=== PATIENT | female | born 1940 | race Caucasian/White ===

== ENCOUNTER 2020-03-15 11:35 | Outpatient (REF) | payer MEDICARE, SELFPAY | END 2020-03-15 11:36 | disposition home or self-care (01) | LOC: HO.LAB 11:35 | PROVIDERS: PCP Internal Medicine; Visit Provider Internal Medicine | DX: Z20.828 Contact with and (suspected) exposure to other viral communicable diseases (principal) | CPT/HCPCS: 36415; C9803; U0003 ==

== ENCOUNTER 2021-08-03 08:33 | Outpatient (REF) | payer OTHER, MEDICARE, SELFPAY ==
[2021-08-03 09:27] LABS: COVID-19 Test Negative (Negative); IDNOW Serial# 9DB6401D
== END 2021-08-03 08:34 | disposition home or self-care (01) ==
LOC: HO.LAB 08:33
PROVIDERS: Visit Provider Internal Medicine
DX: Z20.822 Contact with and (suspected) exposure to COVID-19 (principal)
CPT/HCPCS: 87635; C9803

== ENCOUNTER 2023-04-19 12:03 | Inpatient (IN) | payer OTHER, SELFPAY ==
--- NOTE | ~2023-04-19 | XR_ITS ---
EXAMINATION: XR CHEST CLINICAL INFORMATION: Shortness of breath. COMPARISON: None available. TECHNIQUE: 2 views of the chest were obtained. FINDINGS: The lungs are expanded with moderate bilateral basilar pleural effusion with underlying atelectasis. Heart size is enlarged. The pulmonary vascularity is normal. No gross bony abnormality seen. XR/XR chest 2V IMPRESSION: Moderate bilateral basilar pleural effusion with underlying atelectasis
--- NOTE | 2023-04-19 12:09 | ED_ITS ---
HPI - General Adult General Chief complaint: Arrhythmia/Palpitations Stated complaint: a fib, swollen ankles, not sleeping Time Seen by Provider: 04/19/23 13:00 Source: patient and family Mode of arrival: ambulatory Limitations: no limitations History of Present Illness HPI narrative: 83 yo female with HPL, HTN just dx by PCP with afib 1.5 weeks ago - started on metoprolol now titrated up to 75mg BID and she is on eliquis. She also notes she has CHF but no recent ECHO and not on diuretics. Last few days cannot sleep due to she cannot breath, MORE, leg edema. She states her HR has been up and down. MD complaint: MORE, edema, new onset afib Onset (ago): day(s) (5) Location: chest, left, right and lower extremity Radiation: non-radiation Severity: moderate Relieving factors: rest Exacerbating factors: other (exertion, lying flat) Associated symptoms: other (edema, MORE) Treatments prior to arrival: other (eliquis, metoprolol) Related Data Allergies Allergy/AdvReac Type Severity Reaction Status Date / Time coconut [COCONUT] Allergy Unknown VOMITING Unverified 11/26/19 19:44 Review of Systems 2 Review of Systems: Constitutional : No Fever, No Chills ENT/Mouth : No sore throat, No Rhinorrhea, No Swallowing Difficulty Eyes: No Eye Pain, No Swelling, No Redness Cardiovascular : No Chest Pain, positive SOB, No Orthopnea, positive Edema, pos palpitations Respiratory : No Cough, No Sputum, No Wheezing, positive dyspnea Gastrointestinal : No Nausea, No Vomiting, No Diarrhea, No abdominal Pain, No Hematochezia, No Melena Genitourinary : No Dysuria, No Urinary Frequency, No Hematuria Musculoskeletal : No joint pain, No Myalgias Skin : No Skin Lesions, No rash Neuro : No Weakness, No Numbness, No Dizziness, No Headache Psych : No Anxiety/Panic, No Depression All other systems reviewed and are negative [facility] Past Medical History Attestation statement: The following information was validated with the patient. Source: old records reviewed Medical History Afib CHF (congestive heart failure) Hyperlipidemia HTN (hypertension) Social History Social History (Updated 04/19/23 @ 13:18 by Coby Gonzalez DO) Patient Tobacco Use Status: Never used Tobacco Advance Directives: No Advance Directives Information Provided: No Physical Exam ED Vital Signs: Vital Signs - 24 hr 04/19/23 12:10 04/19/23 13:11 04/19/23 14:10 Temperature 96.1 F L 98.5 F Pulse Rate 130 H 97 121 H Respiratory Rate 20 21 H 25 H Blood Pressure 182/121 H 171/114 H 161/104 H Pulse Oximetry 97 96 96 Oxygen Delivery Method Room Air Room Air Room Air BMI result Body Mass Index 31.2 Appearance: Alert. Oriented X3. No acute distress. Eyes: Pupils equal, round and reactive to light. ENT: Pharynx normal. Neck: Normal inspection. Neck supple. CVS: irregular tachycardic heart rate and rhythm. Pulses normal. Respiratory: No respiratory distress. Breath sounds with rales bilaterally Abdomen: Soft and nontender. Skin: Skin warm and dry. Normal skin color. Normal skin turgor. Extremities: 1-2+ pitting bilateral lower extremity edema. No calf ttp Neuro: Oriented X 3. No motor deficit. No sensory deficit. Course Course Course Narrative: This is an RME: Additional HPI, ROS, PE not included below will be deferred to primary provider. Patient is an 83-year-old female who presents emergency department for evaluation of shortness breath, difficulty sleeping, orthopnea. Reports 1.5 weeks ago, new diagnosis of a-fib by PCP, was having trouble walking and shortness of breath. She was started on metoprolol and Eliquis, which she reports compliance with. 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, awaiting placement in main ED Reevaluation(s) Reevaluation #1: HR down after IV lopressor will monitor Medications Administered Discontinued Medications Generic Name Dose Route Start Last Admin Trade Name Freq PRN Reason Stop Dose Admin Furosemide 40 mg 04/19/23 13:00 04/19/23 13:17 Furosemide 40 Mg/4 Ml Vial IVPUSH 04/19/23 13:01 40 mg STAT STA Administration Protocol Metoprolol Tartrate 5 mg 04/19/23 13:57 04/19/23 14:09 Metoprolol Tartrate 5 Mg/5 Ml Vial IVPUSH 04/19/23 13:58 5 mg ONCE ONE Administration Medical Decision Making Medical Decision Making MDM Narrative: 83 yo female with HPL, HTN, CHF not on diuretics, new dx of afib on 75mg BID of metoprolol and eliquis BID at this time will need basic labs, troponin, BNP, CXR, EKG - will start to diurese and if no sig improvement in rate will start on IV lopressor as well, planned admit. Differential Diagnosis Differential Diagnoses: The differential diagnosis associated with the presentation includes CHF, afib with RVR Admission/Observation Consideration of admission/observation: Escalation of care including admission/observation considered admit for further diuresis Consult Healthcare Provider Management of the patient was discussed with: Hospitalist (admit) Lab Data [facility] Lab Attestation statement: I reviewed the patient's lab results. 04/19/23 12:38 04/19/23 12:38 Labs: Lab Results 04/19/23 Range/Units 12:38 WBC 8.3 (4.8-10.8) X10*3/uL RBC 4.84 (4.20-5.50) X10*6/uL Hgb 14.1 (12.0-16.0) g/dl Hct 44.1 (37.0-47.0) % MCV 91.1 (80.0-98.0) fL MCH 29.1 (27.0-33.0) pg MCHC 32.0 (31.0-35.0) g/dl RDW 13.3 (11.0-16.0) % Plt Count 320 (160-400) X10*3/uL MPV 9.8 (9.4-12.3) fL Immature Gran % (Auto) 0.4 (0.0-0.4) % Neut % (Auto) 75.4 H (45-73) % Lymph % (Auto) 14.8 L (20-40) % [place] % (Auto) 8.1 (2-11) % Eos % (Auto) 0.8 (0-4) % Baso % (Auto) 0.5 (0-2) % Lymph # (Auto) 1.2 (1.2-4.9) X10*3/uL [place] # (Auto) 0.7 (0.1-1.2) X10*3/uL Eos # (Auto) 0.1 (0.0-0.4) X10*3/uL Baso # (Auto) 0.0 (0.0-0.2) X10*3/uL Abs Immat Gran (auto) 0.03 (0.00-0.03) X10*3/uL Absolute Neuts (auto) 6.3 (2.0-8.3) x10*3/uL Absolute Nucleated RBC 0.000 (0.0-0.012) X10*3/uL Nucleated RBC % (auto) 0.0 (0.0-0.2) /100WBC PT 21.5 H (11.1-13.3) SEC INR 1.8 H (0.9-1.1) Sodium 138 (135-145) mmol/L Potassium 4.2 (3.3-5.1) mmol/L Chloride 108 (96-108) mmol/L Carbon Dioxide 21 L (22-29) mmol/L Anion Gap 13 (12-20) BUN 17 H (9-16) mg/dL Creatinine 1.03 (0.5-1.4) mg/dL Estim Creat Clear Calc 38.3 Estimated GFR 51 Random Glucose 124 H (60-115) mg/dL Calcium 9.2 (8.4-10.2) mg/dL Total Bilirubin 0.8 (0.0-1.0) mg/dL AST 36 H (5-31) U/L ALT 59 H (0-31) U/L Alkaline Phosphatase 76 (39-117) U/L Troponin I High Sens < 2.7 (<3.5-17.0) ng/L B-Natriuretic Peptide 1089 H (<100) pg/mL Total Protein 6.3 L (6.5-8.0) g/dL Albumin 3.9 (3.5-5.0) g/dL COVID-19 (CARMELA) Negative (Negative) COVID-19 Clin Com See Note Influenza Type A (SAMMY) Negative (Negative) Influenza Type B (SAMMY) Negative (Negative) Influenza A & B Note See Note Independent Interpretation I performed an independent interpretation of an: EKG and Plain X-Ray (effusions, edema) Interpretation: Rate: 126 Rhythm: afib Gerl[place]: normal Normal QRS complex. ST T wave : nonspecific lateral changes no NATALIA, flat t waves throughout qTC: 385 prior studies: no sig ischemia The study has been interpreted contemporaneously by me. . Radiology Impression Discussion of test interpretation with radiology: I have reviewed the radiologist's reading. Independent Historian Clinical information obtained from an independent historian. History obtained from or confirmed by: Friend External Record Review External record reviewed: Outpatient record Critical Care Time Critical Care Time Critical Care Time: Yes Total Critical Care Time: 35 Attestation: IV lopressor for rate control, admission I attest to this time spent taking care of the patient Discharge Plan Discharge Clinical Impression: Atrial fibrillation with rapid ventricular response Acute CHF Qualifiers: Heart failure type: unspecified Qualified Code(s): I50.9 - Heart failure, unspecified Patient Disposition: Admitted As Inpatient
[2023-04-19 12:10] VITALS: BP 182/121; PULSE 130; RESP 20; TEMP 35.6; O2SAT 97; BMI 31.2
--- NOTE | 2023-04-19 12:14 | ECG_ITS ---
Test Reason : afib Blood Pressure : / mmHG Vent. Rate : 126 BPM Atrial Rate : 000 BPM P-R Int : 000 ms QRS Dur : 072 ms QT Int : 266 ms P-R-T Axes : 000 014 110 degrees QTc Int : 385 ms Atrial fibrillation with rapid ventricular response Possible Anterior infarct , age undetermined Abnormal ECG No previous ECGs available Referred By: Blanca Sapp Electronically Signed By:VIOLA CHAVARRIA
[2023-04-19 12:46] LABS: Basophils Percent Auto 0.5 % (0-2); Eosinophils Absolute Auto 0.1 X10*3/uL (0.0-0.4); Eosinophils Percent Auto 0.8 % (0-4); Hematocrit 44.1 % (37.0-47.0); Hemoglobin 14.1 g/dl (12.0-16.0); Imm Gran Abs Auto 0.03 X10*3/uL (0.00-0.03); Imm Gran Pct Auto 0.4 % (0.0-0.4); Lymphocytes Absolute Auto 1.2 X10*3/uL (1.2-4.9); Lymphocytes Percent Auto 14.8 % (20-40); MANUAL DIFF FLAG NO; Mean Corpuscular Hemoglobin 29.1 pg (27.0-33.0); Mean Corpuscular Volume 91.1 fL (80.0-98.0); Mean Platelet Volume 9.8 fL (9.4-12.3); Monocytes Absolute Auto 0.7 X10*3/uL (0.1-1.2); Monocytes Percent Auto 8.1 % (2-11); Neutrophils Absolute Auto 6.3 x10*3/uL (2.0-8.3); Neutrophils Percent Auto 75.4 % (45-73); Platelet Count 320 X10*3/uL (160-400); Red Blood Count 4.84 X10*6/uL (4.20-5.50); Red Cell Distribution Width 13.3 % (11.0-16.0); White Blood Count 8.3 X10*3/uL (4.8-10.8)
[2023-04-19 12:51] LABS: INTERNATIONAL NORM RATIO 1.8 (0.9-1.1); Prothrombin Time 21.5 SEC (11.1-13.3)
[2023-04-19 12:59] LABS: Alanine Aminotransferase 59 U/L (0-31); Albumin Level 3.9 g/dL (3.5-5.0); Alkaline Phosphatase 76 U/L (39-117); Anion Gap 13 (12-20); Aspartate Amino Transferase 36 U/L (5-31); Bilirubin Total 0.8 mg/dL (0.0-1.0); Blood Urea Nitrogen 17 mg/dL (9-16); Calcium 9.2 mg/dL (8.4-10.2); Carbon Dioxide 21 mmol/L (22-29); Chloride 108 mmol/L (96-108); Creatinine Clr Calc Pharmacy 38.3; Estimated Glomerular Filt Rate 51; Glucose Random 124 mg/dL (60-115); Potassium 4.2 mmol/L (3.3-5.1); Sodium 138 mmol/L (135-145); Total Protein 6.3 g/dL (6.5-8.0)
[2023-04-19 13:03] LABS: COVID-19 Test Negative (Negative); IDNOW Serial# 152EDE1D
[2023-04-19 13:06] LABS: B Type Natriuretic Peptide 1089 pg/mL (<100)
[2023-04-19 13:11] VITALS: BP 171/114; PULSE 97; RESP 21; TEMP 36.9; O2SAT 96
[2023-04-19] MEDS: Furosemide 40 MG/4 ML VIAL IVPUSH ×2 (13:17→21:40)
[2023-04-19 13:22] LABS: IDNOW Serial# 08D9AD1C; Influenza A Negative (Negative); Influenza B2 Negative (Negative)
[2023-04-19 13:38] LABS: Troponin-I High Sensitivity < 2.7 ng/L (<3.5-17.0)
[2023-04-19] MEDS: Metoprolol Tartrate 5 MG/5 ML VIAL IVPUSH ×2 (14:09→14:38)
[2023-04-19 14:10] VITALS: BP 161/104; PULSE 121; RESP 25; O2SAT 96
[2023-04-19 14:37] LABS: Appearance Urine Clear; Color Urine Yellow; Glucose Urine UA Negative (Negative); Leukocyte Esterase Urine Trace (Negative); Nitrite Urine Negative (Negative); UMIC TRIGGER UACC YES; Urine Blood Negative (Negative); Urine Ketones Negative (Negative); Urine Protein Negative (Neg-Trace)
[2023-04-19 14:42] LABS: Bacteria Urine None Seen (None Seen); Hyaline Casts Urine 0-2 /LPF (0-2); RBC Urine 0-2 /HPF (0-2); Squamous Epithelial Cell Urine 0-2 /HPF (0-2); WBC Urine 0-5 /HPF (0-5)
[2023-04-19 15:32] VITALS: BP 157/100; PULSE 102; RESP 20; TEMP 36.4; O2SAT 93
--- NOTE | 2023-04-19 15:49 | PM.IMHP ---
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 Patient states that she had been experiencing shortness of breath for approximately 1-1/2 weeks and made an appointment with her PCP about a week ago where she diagnosed with AFib and started on Eliquis. Has not yet been established with cardiology or undergone outpatient echocardiogram. Since PCP appointment pt's SOB and increased to the point where she would get short of breath from doing basically nothing . Prior, pt reports being very active and always on the go. She particularly enjoyed bowling at least twice a week. Also has noticed increased swelling in lower legs and ankles bilaterally. Denies chest pain/pressure, palpitations. No fever, chills, N/V/D, abdominal pain. In the ED pt was tachycardic up to 130s, tachypneic up to 25, hypertensive as high as 182/121. Labs were significant for AST 36, ALT 59, and BNP 1089. No leukocytosis. Stable H&H. No significant electrolyte abnormalities. UA negative for UTI. Tested negative for COVID and influenza type A and B. CXR showed moderate bilateral basilar pleural effusions with underlying atelectasis. EKG demonstrated AFib with RVR of 126 with no evidence of significant ST elevations or depressions. Pt was treated with furosemide 40 mg IV and metoprolol 5 mg IV x2 doses and metoprolol 2.5mg IV x1 dose. Pt will be admitted to the hospital for treatment and further evaluation of new onset CHF in the setting of Afib with RVR. Review of Systems Review of Systems: Shortness of breath MORE Increasing bilateral lower leg and ankle edema Denies chest pain/pressure, palpitations No fever, chills, nausea, vomiting, abdominal pain [facility] Medical History Afib CHF (congestive heart failure) Hyperlipidemia HTN (hypertension) Family History (Updated 04/20/23 @ 10:24 by Dax Triplett MD) Father Heart disease Mother Heart disease Social History Household Members: None Housing: Apartment Do you presently have visiting nurse or other home services: No Patient Tobacco Use Status: Never used Tobacco Smoked in Last 30 Days: No Second Hand Smoke Exposure: No Use of substances other than those prescribed or required for medical reasons: No Have you been hit, kicked, punched, or otherwise hurt by someone within the past year? If so, by whom?: No Do you feel safe in your current relationship?: No Current Relationship Is there a partner from a previous relationship who is making you feel unsafe now?: No Are you made to feel afraid or neglected: No Advance Directives: No Advance Directives Information Provided: No Do you have thoughts of harming others: None Do you have a plan to hurt others: No Plan Recently lost weight without trying: No Eating poorly because of decreased appetite: No Nutrition Risks: No Nutritional Risk Patient : No : No Poor oral hygiene: No Meds Allergies Allergy/AdvReac Type Severity Reaction Status Date / Time coconut [COCONUT] Allergy Unknown VOMITING Verified 04/19/23 21:39 Home Medications Medication Instructions Recorded Confirmed Last Taken Type apixaban 2.5 mg tablet (Eliquis) 2.5 mg PO BID 04/19/23 04/19/23 Unknown History metoprolol tartrate 50 mg tablet 75 mg PO BID 04/19/23 04/19/23 04/18/23 History simvastatin 20 mg tablet 20 mg PO BEDTIME 04/19/23 04/19/23 04/18/23 History Physical Exam Vital Signs and Narrative: Vital Signs: Last Vital Signs Temp 97.6 F 04/19/23 15:32 Pulse 102 H 04/19/23 15:32 Resp 20 04/19/23 15:32 BP 157/100 H 04/19/23 15:32 Pulse Ox 93 04/19/23 15:32 O2 Del Method Room Air 04/19/23 15:32 BMI result Body Mass Index 31.2 Constitutional: Alert, in no acute distress. Mental Status: Oriented to person, place and time. Eyes: Pupils are equal, round, and reactive to light. Ear, Nose, and Throat: Oropharynx clear, mucous membranes moist. Ears and nose without deformities. Trachea midline. Respiratory: Lungs sounds diminished bilaterally in lower lobes, otherwise clear to auscultation bilaterally. No wheezing, rales, or rhonchi. Cardiovascular: Irregularly irregular rhythm, tachy. No murmurs, rubs, or gallops. Gastrointestinal: Abdomen soft, non-tender, non-distended. Normal bowel sounds. Neurologic: Cranial nerves II-XII are grossly intact bilaterally. No focal neurological deficits. Moves all extremities spontaneously. Skin: Warm, dry. Musculoskeletal: No cyanosis or clubbing. Extremities: 2+ bilateral pitting edema. Psychiatric: Normal mood and affect. Results Labs 04/19/23 12:38 04/20/23 05:44 Labs: Laboratory Results - last 24 hr 04/19/23 04/19/23 12:38 14:31 MCV 91.1 MCH 29.1 MCHC 32.0 RDW 13.3 Plt Count 320 MPV 9.8 Immature Gran % (Auto) 0.4 Neut % (Auto) 75.4 H Lymph % (Auto) 14.8 L [place] % (Auto) 8.1 Eos % (Auto) 0.8 Baso % (Auto) 0.5 Lymph # (Auto) 1.2 [place] # (Auto) 0.7 Eos # (Auto) 0.1 Baso # (Auto) 0.0 Abs Immat Gran (auto) 0.03 Absolute Neuts (auto) 6.3 Absolute Nucleated RBC 0.000 Nucleated RBC % (auto) 0.0 PT 21.5 H INR 1.8 H Anion Gap 13 Estim Creat Clear Calc 38.3 Estimated GFR 51 Random Glucose 124 H Calcium 9.2 Total Bilirubin 0.8 AST 36 H ALT 59 H Alkaline Phosphatase 76 B-Natriuretic Peptide 1089 H Total Protein 6.3 L Albumin 3.9 Urine Color Yellow Urine Appearance Clear Urine pH 6.0 Ur Specific [place] 1.010 Urine Protein Negative Urine Glucose (UA) Negative Urine Ketones Negative Urine Blood Negative Urine Nitrite Negative Ur Leukocyte Esterase Trace H Urine RBC 0-2 Urine WBC 0-5 Ur Squamous Epith Cells 0-2 Urine Bacteria None Seen Hyaline Casts 0-2 COVID-19 (CARMELA) Negative COVID-19 Clin Com See Note Influenza Type A (SAMMY) Negative Influenza Type B (SAMMY) Negative Influenza A & B Note See Note Imaging Radiologist's Impressions: Impressions Chest X-Ray 04/19/23 12:24 IMPRESSION: Moderate bilateral basilar pleural effusion with underlying atelectasis Assessment and Plan (1) Acute CHF: Qualifiers: Heart failure type: unspecified Qualified Code(s): I50.9 - Heart failure, unspecified Status: Acute (2) Atrial fibrillation with rapid ventricular response: Status: Acute Plan Pt is a 83-year-old female with a PMH significant for?HTN, HLD, new onset AFib about one week ago, and 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 Pt will be admitted to the hospital for treatment and further evaluation of new onset CHF in the setting of Afib with RVR. New onset CHF Patient with increasing SOB, bilateral pitting edema, elevated BNP, CXR with pleural effusions bilaterally Furosemide 40 mg IV b.i.d. Follow lytes, Mag, I/O daily weights, low-salt diet Echocardiogram Cardiology consult Monitor on telemetry AFib with RVR Patient's heart rate up into the 130s Recently diagnosed with AFib 1 week ago Will change metoprolol to 50 mg p.o. q.i.d. Patient currently on Eliquis 2.5 mg b.i.d., though no clear indication for why she is on reduced renal dosing Will switch patient to full standard dosing of 5 mg b.i.d. HLD Continue statin DNR/DNI Attending:?Dr. Mock DVT Prophylaxis: On Eliquis Pt will require a hospitalization of at least two nights for treatment and further evaluation new onset CHF in setting of AFib with RVR. Patient require IV diuretics, specialist consultation, additional imaging, and close monitoring of cardiac function and electrolytes. Quality Stroke Does the patient have a stroke diagnosis?: No VTE Prior VTE?: No VTE Risk Level:: Medical - moderate - high VTE Device Contraindication: Treatment Not Indicated VTE Drug Contraindication: N/A - Med Ordered
--- NOTE | 2023-04-19 16:07 | PHA.MEDREC ---
Pharmacy Consult ? Medication Reconciliation Pharmacy has completed the medication reconciliation. Patient reported Eliqiuis and metoprolol 75 mg. Call pharmacy to confirm dose as not claim history. Patient never picked up the Elqius and it was return to stock. There was no new prescripiton for metoprolol to reflect the increase dose she reported. Mónica Melgoza, PharmD
[2023-04-19] MEDS: Metoprolol Tartrate 5 MG/5 ML VIAL 2.5 MG IVPUSH (16:24)
[2023-04-19] MEDS: Metoprolol Tartrate 50 MG TABLET PO ×2 (17:28→21:39)
[2023-04-19 18:31] VITALS: BP 117/94; PULSE 95; RESP 20; TEMP 37.1; O2SAT 94
[2023-04-19 20:38] VITALS: BP 143/83; PULSE 91; RESP 20; TEMP 36.8; O2SAT 96
--- NOTE | 2023-04-19 20:39 | MHC.EDTECH ---
This tech took over care of patient at this time,hourly rounds and vitals completed,patient got up with a 1 assist to the commode,minerav-care giving and patient is back in bed, call sharif in reach
[2023-04-19] MEDS: Apixaban 5 MG TABLET PO (21:39)
[2023-04-19] MEDS: Atorvastatin Calcium 10 MG TABLET PO (21:39)
[2023-04-19] MEDS: 0.9 % Sodium Chloride Flush 3 ML SYRINGE IVFLUSH (23:08)
[2023-04-19 23:11] VITALS: BMI 31.1
[2023-04-20] VITALS (10 sets, daily range): BP systolic 121–154; BP diastolic 60–81; PULSE 68–110; RESP 16–20; TEMP 35.7–36.8; O2SAT 93–98
--- NOTE | 2023-04-20 07:00 | CA_ITS ---
Transthoracic Echocardiogram Patient (Last, First, Middle): Rashmi Yuan M Gender: Female Date of : 1940 Age: 83 Procedure Date: 04/20/2023 Procedure Type: Transthoracic Echocardiogram Location: OP Height: 154.94 cm Weight: 74.39 kg BSA: 1.74 m2 Heart Rate: bpm BP: 146 / 80 mmHg Belt Polisher: TO Referring MD: Marcella DOWNING Symptoms: New onset CHF Study Quality: Fair/Contrast ECG Rhythm: Atrial Fibrillation Conclusions: - The left ventricular systolic function is mild to moderately decreased. The calculated ejection fraction is 41% by biplane method. - There is mild aortic valve regurgitation. - There is mild tricuspid valve regurgitation. Findings Procedure Information Contrast agent, definity, is being given per protocol without apparent complications. Left Ventricle Normal left ventricular cavity size. The left ventricular systolic function is mild to moderately decreased. The calculated ejection fraction is 41% by biplane method. There is moderate global hypokinesis. Diastolic function is indeterminate on the basis of available data. There is mild septal asymmetric hypertrophy. Right Ventricle Normal right ventricular cavity size. There is mildly decreased right ventricular systolic function. Atria The left atrium is mildly dilated. The right atrium is normal in size. Aortic Valve There is a normal trileaflet aortic valve. There is mild calcification of the aortic valve. There is no aortic valve stenosis. There is mild aortic valve regurgitation. Mitral Valve There is mild posterior mitral annular calcification. There is trace mitral valve regurgitation. There is no mitral valve stenosis. Pulmonic Valve The pulmonic valve is likely normal. Tricuspid Valve There is mild tricuspid valve regurgitation. There is no evidence of pulmonary hypertension. Great Vessels The asc aorta is normal in size. Venous The inferior vena cava is normal in size and collapses greater than 50% with inspiration. Pericardium/Pleural There is a small loculated pericardial effusion overlying the left ventricle. Prior Study Comparison No prior study available for comparison. Measurements 2D Linear Measurements IVSd: 1.17 0.6-0.9/0.6-1.0 cm LVIDd: 4.29 3.9-5.3/4.2-5.9 cm LVIDd Index: 2.47 2.4-3.2/2.2-3.1 cm/m2 LVIDs: 3.37 2.0-3.6 cm LVPWd: 0.86 0.7-1.1 cm LA Diam: 3.30 2.7-3.8/3.0-4.0 cm LAIDs Index: 1.90 1.5-2.3 cm/m2 LV Mass: 180.67 67-162/88-224 g LV Mass Index: 103.83 43-95/49-115 g/m2 LVOT Diam: 1.90 3.0+(-)1.3 cm 2D Systolic Function EF 4C: 43.30 >55% EF 2C: 31.70 >55% EF BiP: 40.60 >55% Mitral Valve MV VTI: 0.14 MV Pk Ronn: 0.90 MV Mn Ronn: 0.53 MV Pk Grad: 3.00 MV Mn Grad: 1.00 MV Pk E: 0.90 MV Decel Time: 160.00 E'Lateral: 8.74 E'Medial: 5.44 E/E' Med: 16.50 E/E' Lat: 10.30 PHT: 47.00 MVA PHT: 4.68 MVA Continuity: 2.19 Decel [place]: 5.62 Aortic Valve AoV Pk Ronn: 0.98 AoV Pk Grad: 4.00 AI Pk Ronn: 3.84 AI [place]: 2.23 LVOT LVOT Pk Ronn: 0.69 LVOT Mn Ronn: 0.48 LVOT VTI: 0.10 LVOT Pk Grad: 2.00 LVOT Mn Grad: 1.00 LVOT Diam: 1.90 LVOT Area: 2.84 Diastolic Function MV Pk E: 0.90 E'Medial: 5.44 E/E' Med: 16.50 E' Laterial: 8.74 E/E' Lat: 10.30 Right Ventricle TAPSE (mm): 13.40 TVS' Ronn: 7.97 Tricuspid Valve TR Pk Ronn: 1.75 TR Pk Grad: 12.00 RA Press: 3.00 RVSP: 15.00 Great Vessels Aorta Sinus of Valsalva: 2.74 2.0-3.[address] [place]: 1.98 1.7-3.4 cm Ao Asc: 3.00 2.1-3.4 cm Updated in Other Vendor System with Status of Final Dax Triplett MD electronically signed on 04/20/2023 10:48:50 AM with status of Final
[2023-04-20 07:03] LABS: Blood Urea Nitrogen 17 mg/dL (9-16); Calcium 8.9 mg/dL (8.4-10.2); Creatinine Clr Calc Pharmacy 38.3; Estimated Glomerular Filt Rate 51; Glucose Random 98 mg/dL (60-115); Magnesium 1.7 mg/dL (1.6-2.6)
[2023-04-20 07:17] LABS: Anion Gap 16 (12-20); Carbon Dioxide 26 mmol/L (22-29); Chloride 101 mmol/L (96-108); Potassium 3.2 mmol/L (3.3-5.1); Sodium 140 mmol/L (135-145)
[2023-04-20 08:21] LABS: Alanine Aminotransferase 54 U/L (0-31); Albumin Level 3.6 g/dL (3.5-5.0); Alkaline Phosphatase 69 U/L (39-117); Aspartate Amino Transferase 34 U/L (5-31); Bilirubin Direct 0.5 mg/dL (0.0-0.5)
[2023-04-20 08:30] LABS: B Type Natriuretic Peptide 480 pg/mL (<100)
[2023-04-20] MEDS: Metoprolol Tartrate 50 MG TABLET PO ×4 (09:16→19:56)
[2023-04-20] MEDS: Furosemide 40 MG/4 ML VIAL IVPUSH ×2 (09:16→19:56)
[2023-04-20] MEDS: Apixaban 5 MG TABLET PO ×2 (09:16→19:56)
[2023-04-20] MEDS: Potassium Chloride ER 20 MEQ TAB.ER.PRT PO (09:17)
[2023-04-20] MEDS: 0.9 % Sodium Chloride Flush 3 ML SYRINGE IVFLUSH ×3 (09:17→19:56)
[2023-04-20] MEDS: Magnesium Sulfate/D5W 1 GM/100 ML PIGGYBACK IV (09:17)
--- NOTE | 2023-04-20 10:23 | PM.CNCAR ---
History of Present Illness History of Present Illness Date of Service: 04/20/23 Chief complaint: New onset CHF Narrative: This is a cardiology consultation regarding atrial fibrillation. No known cardiac issues apparently and recently has been having symptoms of shortness of breath and lower extremity edema. Then seen by PCP and it seems that she got diagnosed with atrial fibrillation started on Eliquis. It seems an outpatient echocardiogram was ordered but then the patient got further symptoms and got admitted to the hospital. She is being treated for congestive heart failure as well as atrial fibrillation rapid rate. According to her, she is very healthy in the past and did not have any cardiac issues or in fact anything else. Review of Systems Review of Systems: Yes all other systems are reviewed and are negative Constitutional: Constitutional: Reports as per HPI and Reports no additional constitutional complaints Eyes: Eyes: Reports as per HPI and Denies no additional eye complaints ENT: Denies system reviewed and no additional complaints, except as documented and Reports as per HPI Cardiovascular: Cardiovascular: Reports as per HPI, Reports no additional cardiovascular complaints, Denies acrocyanosis, Denies cool extremities, Denies chest pain, Denies leg edema, Denies lightheadedness, Denies palpitations and Denies dyspnea Respiratory: Respiratory: Reports as per HPI, Denies no additional respiratory complaints and Denies dyspnea Gastrointestinal: Gastrointestinal: Reports as per HPI and Denies no additional gastrointestinal complaints Genitourinary: Genitourinary: Reports as per HPI Musculoskeletal: Musculoskeletal: Reports no additional musculoskeletal complaints and Reports as per HPI Integumentary/Breasts: Skin/Breast: Reports system reviewed and no additional complaints, except as docu Neurologic: Reports system reviewed and no additional complaints, except as documented and Reports as per HPI Psychiatric: Psychiatric: Reports no additional psychiatric complaints and Reports as per HPI Endocrine: Endocrine: Reports no additional endocrine complaints, Reports as per HPI and Denies palpitations Hematologic/Lymphatic: Hematologic/Lymphatic: Reports no additional hematologic/lymphatic complaints and Reports as per HPI Allergic/Immunologic: Allergic/Immunologic: Reports no additional allergic/immunologic complaints and Reports as per HPI [facility] Past Medical History Medical History Afib CHF (congestive heart failure) Hyperlipidemia HTN (hypertension) Family History Family History (Updated 04/20/23 @ 10:24 by Dax Triplett MD) Father Heart disease Mother Heart disease Social History Social History Household Members: None Housing: Apartment Do you presently have visiting nurse or other home services: No Patient Tobacco Use Status: Never used Tobacco Smoked in Last 30 Days: No Second Hand Smoke Exposure: No Use of substances other than those prescribed or required for medical reasons: No Have you been hit, kicked, punched, or otherwise hurt by someone within the past year? If so, by whom?: No Do you feel safe in your current relationship?: No Current Relationship Is there a partner from a previous relationship who is making you feel unsafe now?: No Are you made to feel afraid or neglected: No Advance Directives: No Advance Directives Information Provided: No Do you have thoughts of harming others: None Do you have a plan to hurt others: No Plan Recently lost weight without trying: No Eating poorly because of decreased appetite: No Nutrition Risks: No Nutritional Risk Patient : No : No Poor oral hygiene: No Meds Allergies Allergy/AdvReac Type Severity Reaction Status Date / Time coconut [COCONUT] Allergy Unknown VOMITING Verified 04/19/23 21:39 Active Medications: Current Medications Acetaminophen (Acetaminophen 325 Mg Tablet) 650 mg PO Q6H PRN PRN Reason: Pain, Mild (Pain Scale 1-3) Apixaban (Apixaban 5 Mg Tablet) 5 mg PO BID [facility] Last Admin: 04/20/23 09:16 Dose: 5 mg Atorvastatin Calcium (Atorvastatin Calcium 10 Mg Tablet) 10 mg PO BEDTIME [facility] Last Admin: 04/19/23 21:39 Dose: 10 mg Docusate Sodium (Docusate Sodium 100 Mg Capsule) 100 mg PO DAILY PRN PRN Reason: Constipation Furosemide (Furosemide 40 Mg/4 Ml Vial) 40 mg IVPUSH BID [facility]; Protocol Last Admin: 04/20/23 09:16 Dose: 40 mg Melatonin (Melatonin 3 Mg Tablet) 6 mg PO BEDTIME PRN PRN Reason: Insomnia Metoprolol Tartrate (Metoprolol Tartrate 50 Mg Tablet) 50 mg PO QID [facility]; Protocol Last Admin: 04/20/23 09:16 Dose: 50 mg Ondansetron HCl (Ondansetron Hcl 4 Mg/2 Ml Vial) 4 mg IVPUSH Q8H PRN PRN Reason: Nausea and Vomiting Sodium Chloride (0.9 % Sodium Chloride Flush 3 Ml Syringe) 3 ml IVFLUSH QSHIFT [facility] Last Admin: 04/20/23 09:17 Dose: 3 ml Home Medications Medication Instructions Recorded Confirmed Last Taken Type apixaban 2.5 mg tablet (Eliquis) 2.5 mg PO BID 04/19/23 04/19/23 Unknown History metoprolol tartrate 50 mg tablet 75 mg PO BID 04/19/23 04/19/23 04/18/23 History simvastatin 20 mg tablet 20 mg PO BEDTIME 04/19/23 04/19/23 04/18/23 History Physical Exam Vital Signs: Vital Signs: Last Vital Signs Temp 96.2 F L 04/20/23 08:00 Pulse 98 04/20/23 08:00 Resp 18 04/20/23 08:00 BP 146/80 H 04/20/23 08:00 Pulse Ox 94 04/20/23 08:00 O2 Del Method Room Air 04/20/23 08:00 BMI result Body Mass Index 31.1 Const: General: comfortable and no acute distress Orientation/consciousness: patient oriented x3 HEENT: Other: Unremarkable Head: Yes normal to inspection Neck: Neck: Yes normal visual inspection Chest: Chest palpation & inspection: normal inspection of the chest Resp: Auscultation: clear to auscultation bilaterally Cardio: Palpation: normal PMI Heart sounds: S1 normal heart sound present, S2 normal heart sound present, no gallops, no murmurs and no rubs GI: Palpation (GI): Soft to palpation Back/Spine/Pelvis: Other: unremarkable Skin: General skin exam: no rashes or lesions noted Neuro: General: patient oriented x3 Extrem: General: Yes normal to inspection Psych: Mental Status: mental status grossly normal Objective Labs and Meds 04/19/23 12:38 04/20/23 05:44 Lab results: Laboratory Results - last 24 hr 04/19/23 04/19/23 04/20/23 12:38 14:31 05:44 WBC 8.3 RBC 4.84 Hgb 14.1 Hct 44.1 MCV 91.1 MCH 29.1 MCHC 32.0 RDW 13.3 Plt Count 320 MPV 9.8 Immature Gran % (Auto) 0.4 Neut % (Auto) 75.4 H Lymph % (Auto) 14.8 L [place] % (Auto) 8.1 Eos % (Auto) 0.8 Baso % (Auto) 0.5 Lymph # (Auto) 1.2 [place] # (Auto) 0.7 Eos # (Auto) 0.1 Baso # (Auto) 0.0 Abs Immat Gran (auto) 0.03 Absolute Neuts (auto) 6.3 Absolute Nucleated RBC 0.000 Nucleated RBC % (auto) 0.0 Hold Purple Top SEE NOTE PT 21.5 H INR 1.8 H Sodium 138 140 Potassium 4.2 3.2 L D Chloride 108 101 Carbon Dioxide 21 L 26 Anion Gap 13 16 BUN 17 H 17 H Creatinine 1.03 1.03 Estim Creat Clear Calc 38.3 38.3 Estimated GFR 51 51 Random Glucose 124 H 98 Calcium 9.2 8.9 Magnesium 1.7 Total Bilirubin 0.8 1.0 Direct Bilirubin 0.5 AST 36 H 34 H ALT 59 H 54 H Alkaline Phosphatase 76 69 Troponin I High Sens < 2.7 B-Natriuretic Peptide 1089 H 480 H Total Protein 6.3 L 6.0 L Albumin 3.9 3.6 Urine Color Yellow Urine Appearance Clear Urine pH 6.0 Ur Specific [place] 1.010 Urine Protein Negative Urine Glucose (UA) Negative Urine Ketones Negative Urine Blood Negative Urine Nitrite Negative Ur Leukocyte Esterase Trace H Urine RBC 0-2 Urine WBC 0-5 Ur Squamous Epith Cells 0-2 Urine Bacteria None Seen Hyaline Casts 0-2 COVID-19 (CARMELA) Negative COVID-19 Clin Com See Note Influenza Type A (SAMMY) Negative Influenza Type B (SAMMY) Negative Influenza A & B Note See Note ECG Interpretation: EKG with atrial fibrillation at a rate of 126/Min. Nonspecific ST-T changes. Can not exclude old anterior infarct but could be from body habitus. Imaging Radiologist's impression: Impressions Chest X-Ray 04/19/23 12:24 IMPRESSION: Moderate bilateral basilar pleural effusion with underlying atelectasis Assessment and Plan (1) Atrial fibrillation with rapid ventricular response: Status: Acute Home med listed as metoprolol 75 mg b.i.d.. Currently, listed as 50 mg q.i.d.. We can add digoxin loading to the regimen. Continue Eliquis. (2) Acute CHF: Qualifiers: Heart failure type: unspecified Qualified Code(s): I50.9 - Heart failure, unspecified Status: Acute IV diuretics. Echocardiogram for cardiac function assessment. Plan Discussed with Dr. Mock. Procedures Date of Service Date of Service: 04/20/23
[2023-04-20] MEDS: Digoxin 0.25 MG TABLET PO ×2 (13:04→18:50)
--- NOTE | 2023-04-20 13:32 | P.PNIM_ITS ---
Subjective Subjective Date of Service: 04/20/23 Interval History: afib with rvr chf Review of Systems feels sob with exceresion hr still elevated no chest pain Physical Exam 2 Vital Signs: Vital Signs: Last Vital Signs Temp 96.7 F L 04/20/23 11:31 Pulse 93 04/20/23 11:31 Resp 18 04/20/23 11:31 BP 121/73 04/20/23 11:31 Pulse Ox 94 04/20/23 11:31 O2 Del Method Room Air 04/20/23 11:31 BMI result Body Mass Index 31.1 Appearance: Alert.? Oriented X3.? sob. cvs: tachy (irregular rythem), [id number] . res: clear to auscultation ,no rhonchii or wheezing abd: no rebound or guarding ,nt, bs present. ext pulses present , no cyanosis ,edema 1+. neuro: axo3 , nonfocal. Objective Data Active Medications Acetaminophen (Acetaminophen 325 Mg Tablet) 650 mg PO Q6H PRN PRN Reason: Pain, Mild (Pain Scale 1-3) Apixaban (Apixaban 5 Mg Tablet) 5 mg PO BID [facility] Last Admin: 04/20/23 09:16 Dose: 5 mg Documented By: MARIANNE Atorvastatin Calcium (Atorvastatin Calcium 10 Mg Tablet) 10 mg PO BEDTIME [facility] Last Admin: 04/19/23 21:39 Dose: 10 mg Documented By: PHYLLIS Digoxin (Digoxin 0.25 Mg Tablet) 0.25 mg PO Q6H [facility] Stop: 04/21/23 07:01 Last Admin: 04/20/23 13:04 Dose: 0.25 mg Documented By: CARLEEN Docusate Sodium (Docusate Sodium 100 Mg Capsule) 100 mg PO DAILY PRN PRN Reason: Constipation Furosemide (Furosemide 40 Mg/4 Ml Vial) 40 mg IVPUSH BID [facility]; Protocol Last Admin: 04/20/23 09:16 Dose: 40 mg Documented By: MARIANNE Melatonin (Melatonin 3 Mg Tablet) 6 mg PO BEDTIME PRN PRN Reason: Insomnia Metoprolol Tartrate (Metoprolol Tartrate 50 Mg Tablet) 50 mg PO QID [facility]; Protocol Last Admin: 04/20/23 13:04 Dose: 50 mg Documented By: CARLEEN Ondansetron HCl (Ondansetron Hcl 4 Mg/2 Ml Vial) 4 mg IVPUSH Q8H PRN PRN Reason: Nausea and Vomiting Sodium Chloride (0.9 % Sodium Chloride Flush 3 Ml Syringe) 3 ml IVFLUSH QSHIFT [facility] Last Admin: 04/20/23 09:17 Dose: 3 ml Documented By: MARIANNE Labs 04/19/23 12:38 04/20/23 05:44 Labs: Laboratory Results - last 24 hr 04/19/23 04/20/23 14:31 05:44 Hold Purple Top SEE NOTE Anion Gap 16 Estim Creat Clear Calc 38.3 Estimated GFR 51 Random Glucose 98 Calcium 8.9 Magnesium 1.7 Total Bilirubin 1.0 Direct Bilirubin 0.5 AST 34 H ALT 54 H Alkaline Phosphatase 69 B-Natriuretic Peptide 480 H Total Protein 6.0 L Albumin 3.6 Urine Color Yellow Urine Appearance Clear Urine pH 6.0 Ur Specific [place] 1.010 Urine Protein Negative Urine Glucose (UA) Negative Urine Ketones Negative Urine Blood Negative Urine Nitrite Negative Ur Leukocyte Esterase Trace H Urine RBC 0-2 Urine WBC 0-5 Ur Squamous Epith Cells 0-2 Urine Bacteria None Seen Hyaline Casts 0-2 Assessment and Plan (1) Acute CHF: Status: Acute (2) Atrial fibrillation with rapid ventricular response: Status: Acute Plan 83-year-old female with a PMH significant for?HTN, HLD, new onset AFib about one week ago, and 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 Pt will be admitted to the hospital for treatment and further evaluation of new onset CHF in the setting of Afib with RVR. New onset CHF Monitor on telemetry Patient with increasing SOB, bilateral pitting edema, elevated BNP, CXR with pleural effusions bilaterally Furosemide 40 mg IV b.i.d. Follow lytes, Mag, I/O daily weights, low-salt diet Echocardiogram Cardiology consult-continue diuretics , moniter i/o edwin(staff aware). AFib with RVR hr wtill elevated 120's continue metoprolol,added digoxin loadx4 dose (0.25) moniter tele HLD Continue statin DNR/DNI DVT Prophylaxis: On Eliquis ongoing hospitalization need for 48-72 hrs for treatment and further evaluation new onset CHF in setting of AFib with RVR. tele and i/o moniterin , Patient require IV diuretics, specialist consultation, additional imaging, and close monitoring of cardiac function and electrolytes. Quality Stroke Does the patient have a stroke diagnosis?: No VTE Prior VTE?: No VTE Risk Level:: Medical - moderate - high VTE Device Contraindication: Treatment Not Indicated VTE Drug Contraindication: N/A - Med Ordered
--- NOTE | 2023-04-20 15:13 | MHC.CM.PN ---
IMM 04/20. Pt lives in an apartment alone, self-care. Pts friend Mery will transport her home. HCP copy requested, and blank copy left with pt to fill out per her request, will follow up to assist in HCP completion with pt. PCP: Dr. Fco Mead
[2023-04-20] MEDS: Atorvastatin Calcium 10 MG TABLET PO (19:56)
[2023-04-21] MEDS: Digoxin 0.25 MG TABLET PO ×2 (02:00→06:54)
[2023-04-21 04:23] VITALS: BP 168/95; PULSE 98; RESP 20; TEMP 36; O2SAT 94
[2023-04-21 06:40] LABS: Anion Gap 17 (12-20); Blood Urea Nitrogen 19 mg/dL (9-16); Calcium 9.3 mg/dL (8.4-10.2); Carbon Dioxide 29 mmol/L (22-29); Chloride 98 mmol/L (96-108); Creatinine Clr Calc Pharmacy 35.4; Estimated Glomerular Filt Rate 47; Glucose Random 102 mg/dL (60-115); Potassium 3.6 mmol/L (3.3-5.1); Sodium 140 mmol/L (135-145)
[2023-04-21 06:41] LABS: B Type Natriuretic Peptide 188 pg/mL (<100)
[2023-04-21 07:19] VITALS: BP 157/82; PULSE 90; RESP 18; TEMP 36.4; O2SAT 95
[2023-04-21] MEDS: Apixaban 5 MG TABLET PO (09:19)
[2023-04-21] MEDS: 0.9 % Sodium Chloride Flush 3 ML SYRINGE IVFLUSH (09:20)
[2023-04-21] MEDS: Furosemide 40 MG/4 ML VIAL IVPUSH (09:20)
[2023-04-21] MEDS: Metoprolol Tartrate 50 MG TABLET PO ×2 (09:20→12:09)
--- NOTE | 2023-04-21 10:10 | PM.PNCARD ---
Subjective Subjective Date of Service: 04/21/23 Interval history: She states she is feeling much better. Review of Systems Review of Systems Yes all other systems are reviewed and are negative Constitutional: Reports as per HPI and Reports no additional constitutional complaints Eyes: Reports as per HPI and Denies no additional eye complaints Denies system reviewed and no additional complaints, except as documented and Reports as per HPI Cardiovascular: Reports as per HPI, Reports no additional cardiovascular complaints, Denies acrocyanosis, Denies cool extremities, Denies chest pain, Denies leg edema, Denies lightheadedness, Denies palpitations and Denies dyspnea Respiratory: Reports as per HPI, Denies no additional respiratory complaints and Denies dyspnea Gastrointestinal: Reports as per HPI and Denies no additional gastrointestinal complaints Genitourinary: Reports as per HPI Musculoskeletal: Reports no additional musculoskeletal complaints and Reports as per HPI Skin/Breast: Reports system reviewed and no additional complaints, except as docu Reports system reviewed and no additional complaints, except as documented and Reports as per HPI Psychiatric: Reports no additional psychiatric complaints and Reports as per HPI Endocrine: Reports no additional endocrine complaints, Reports as per HPI and Denies palpitations Hematologic/Lymphatic: Reports no additional hematologic/lymphatic complaints and Reports as per HPI Allergic/Immunologic: Reports no additional allergic/immunologic complaints and Reports as per HPI Physical Exam Vital Signs: Last Vital Signs Temp 97.5 F 04/21/23 07:19 Pulse 90 04/21/23 07:19 Resp 18 04/21/23 07:19 BP 157/82 H 04/21/23 07:19 Pulse Ox 95 04/21/23 07:19 O2 Del Method Room Air 04/21/23 07:19 BMI result Body Mass Index 31.1 Const General: comfortable and no acute distress Orientation/consciousness: patient oriented x3 HEENT Other: Unremarkable Head: Yes normal to inspection Neck Neck: Yes normal visual inspection Chest Chest palpation & inspection: normal inspection of the chest Resp Auscultation: clear to auscultation bilaterally Cardio Palpation: normal PMI Heart sounds: S1 normal heart sound present, S2 normal heart sound present, no gallops, no murmurs and no rubs GI Palpation (GI): Soft to palpation Back/Spine/Pelvis Other: unremarkable Skin General skin exam: no rashes or lesions noted Neuro General: patient oriented x3 Extrem General: Yes normal to inspection Psych Mental Status: mental status grossly normal Objective Labs and Meds 04/19/23 12:38 04/21/23 06:06 Lab results: Laboratory Results - last 24 hr 04/21/23 06:06 Sodium 140 Potassium 3.6 Chloride 98 Carbon Dioxide 29 Anion Gap 17 BUN 19 H Creatinine 1.11 Estim Creat Clear Calc 35.4 Estimated GFR 47 Random Glucose 102 Calcium 9.3 Magnesium 2.0 B-Natriuretic Peptide 188 H Progress Note: A&P Assessment and plan (1) Atrial fibrillation with rapid ventricular response: Status: Acute Assessment and Plan: Med change the metoprolol to 100 mg b.i.d.. Continue anticoagulation. On telemetry, atrial fibrillation rate seems controlled. (2) Acute CHF: Status: Acute Assessment and Plan: Echocardiogram shows LVEF of 41%. Mild aortic/tricuspid regurgitation. Could be related to tachycardia mediated cardiomyopathy. Less likely coronary disease but that is also possible. Hopefully, with improvement in ventricular rate this can improve. Diuretics for symptomatic relief. Plan Will arrange follow-up in clinic. Discussed with Dr. Mock. Time Spent With Patient Time: Total time managing care of this patient today ____ minutes. Progress Note: Quality Stroke Does the patient have a stroke diagnosis?: No Procedures Date of Service Date of Service: 04/21/23
--- NOTE | 2023-04-21 10:58 | MHC.CM.PN ---
Pt is medically cleared for D/C home with new [facility]. Pts friend/HCP Mery will transport her home. HCP completed with pt and now on file.
[2023-04-21 11:15] VITALS: BP 123/76; PULSE 85; RESP 18; TEMP 36.3; O2SAT 95
--- NOTE | 2023-04-21 11:44 | P.F2F_ITS ---
Service Date Service Date: 04/21/23 Encounter Date of encounter: 04/21/23 Encounter: afib with rvr ,chf Reasons for Services Signs and symptoms assessed: sob or chest pain Reason for intermediate: CV/CP assess and/or care, medication management, medication treatment and teach disease management Reason for physical therapy: home safety and mobility, therapeutic exercises, restore joint function, gait/transfer training, assess need for DME, ADL training, energy conservation and other MD Overseeing Care: Fco Mead Homebound: Leaving the home is medically contraindicated at this time without the asist of a device and/or another person due th the listed conditions above and below. Reason homebound: weakness related to hospital stay Homebound supporting statement: patient is generlaised weak post hospitlisation ,has multiple comorbidities including chf ,afib -need help with need to go to appointments, lab draw, pt. Certification: Based on the above findings, I certify that this patient is confined to the home and needs intermittent intermediate care, physical therapy and/or speech therapy, or continues to need occupational therapy. The patient is under my care, and I have initiated the establishment of the plan of care. The patient will be followed by a physician who will periodically review the plan of care. Time Spent With Patient Time: Total time managing care of this patient today ____ minutes.
--- NOTE | 2023-04-21 12:12 | PM.DS ---
DS: Providers Provider Date of Service: 04/21/23 Date of admission: 04/19/23 16:57 Date of discharge: 04/21/23 Primary care physician: Fco Mead MD Consults: 04/19/23 16:42 Consult to Cardiology Routine Consulting Provider: [facility] Reason for consultation: New onset CHF, diagnosed with AFib 1 week ago Attending physician on discharge: Jenni Mock Discharging clinician: Jenni Mock DS: Diagnosis Discharge Diagnosis (1) Atrial fibrillation with rapid ventricular response: Status: Acute (2) Acute CHF: Status: Acute DS: Summary Hospital Course Hospital Course: 83-year-old female with a PMH significant for?HTN, HLD, new onset AFib about one week ago, and 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 Patient states that she had been experiencing shortness of breath for approximately 1-1/2 weeks and made an appointment with her PCP about a week ago where she diagnosed with AFib and started on Eliquis. Has not yet been established with cardiology or undergone outpatient echocardiogram. Since PCP appointment pt's SOB and increased to the point where she would get short of breath from doing basically nothing . Prior, pt reports being very active and always on the go. She particularly enjoyed bowling at least twice a week. Also has noticed increased swelling in lower legs and ankles bilaterally. Denies chest pain/pressure, palpitations. No fever, chills, N/V/D, abdominal pain. In the ED pt was tachycardic up to 130s, tachypneic up to 25, hypertensive as high as 182/121. Labs were significant for AST 36, ALT 59, and BNP 1089. No leukocytosis. Stable H&H. No significant electrolyte abnormalities. UA negative for UTI. Tested negative for COVID and influenza type A and B. CXR showed moderate bilateral basilar pleural effusions with underlying atelectasis. EKG demonstrated AFib with RVR of 126 with no evidence of significant ST elevations or depressions. Pt was treated with furosemide 40 mg IV and metoprolol 5 mg IV x2 doses and metoprolol 2.5mg IV x1 dose. Pt will be admitted to the hospital for treatment and further evaluation of new onset CHF in the setting of Afib with RVR. Hospital course: Patient came to the hospital because of shortness of breath: Found to have elevated BNP, leg edema, tachycardia, EKG showed AFib: Patient was given IV metoprolol in addition was given digoxin load, subsequently switched to p.o. metoprolol and also given IV Lasix for CHF: Patient heart rate seems to be improved, also patient shortness of breath improved as well as leg edema. Patient was switched to metoprolol 100 mg p.o. b.i.d., also started on Lasix 20 mg daily upon discharge. Patient is to follow up outpatient with Cardiology, cardiology may arrange their own appointment and consider outpatient cardiac rehab as per cardio. plan: CHF education given in detail-if weight gain 2 lb or more in a week patient need outpatient Lasix adjustment, monitor renal function and electrolytes outpatient as well as follow-up with PCP. Monitor renal function electrolytes out patiently Follow-up with PCP and Cardiology outpatient. Above management discussed with the patient in detail length she understand and in agreement with the above plan, time spent 50 minute. Time Attestation Discharge coordination time: Greater than 30 minutes Quality: Safe Use of Opioids Does Pt have an Active Cancer Diagnosis on the Problem List?: No Quality: Stroke Does the patient have a stroke diagnosis?: No Physical Exam Vital Signs: Vital Signs: Last Vital Signs Temp 97.3 F 04/21/23 11:15 Pulse 85 04/21/23 11:15 Resp 18 04/21/23 11:15 BP 123/76 04/21/23 11:15 Pulse Ox 95 04/21/23 11:15 O2 Del Method Room Air 04/21/23 11:15 BMI result Body Mass Index 31.1 Appearance: Alert.? Oriented X3.? not in distress.? cvs: irregular rythem, [id number] . res: clear to auscultation ,no rhonchii or wheezing abd: no rebound or guarding ,nt, bs present. ext pulses present , no cyanosis,edema improved. neuro: axo3 , nonfocal. DS: Data Data Completed and Pending Labs on day of discharge: Laboratory Results - last 24 hr 04/21/23 06:06 Sodium 140 Potassium 3.6 Chloride 98 Carbon Dioxide 29 Anion Gap 17 BUN 19 H Creatinine 1.11 Estim Creat Clear Calc 35.4 Estimated GFR 47 Random Glucose 102 Calcium 9.3 Magnesium 2.0 B-Natriuretic Peptide 188 H Imaging Chest x-ray: Radiologist's impression: ITS Impressions Chest X-Ray 04/19/23 12:24 IMPRESSION: Moderate bilateral basilar pleural effusion with underlying atelectasis Discharge Plan Discharge Anticipated Discharge Date/Time: 04/21/23 11:32 Patient Disposition: Home Health Service Discharge Diagnosis: chf execerebation( Hf with reduced Ef) Referrals: Tonia ROSAS [Outside] - 1 Week Fco Mead MD [Primary Care Provider] - 1 Week Discharge Medications: New furosemide [Lasix] 40 mg tablet 20 mg PO DAILY Qty: 30 0RF Eliquis 5 mg Tablet 5 mg PO BID Qty: 60 0RF Continued simvastatin 20 mg tablet 20 mg PO BEDTIME Changed metoprolol tartrate 50 mg tablet 100 mg PO BID Qty: 120 0RF Discontinued Eliquis 2.5 mg Tablet 2.5 mg PO BID Discharge Orders: Discharge Order (Routine); Ordered 04/21/23 Ordered By: Jenni Mock Diet: Advance to usual diet Activity on Discharge: As tolerated Stand Alone Forms: Patient Portal Discharge page Care Plan Goals: Patient came to the hospital because of shortness of breath: Found to have elevated BNP, leg edema, tachycardia, EKG showed AFib: Patient was given IV metoprolol in addition was given digoxin load, subsequently switched to p.o. metoprolol and also given IV Lasix for CHF: Patient heart rate seems to be improved, also patient shortness of breath improved as well as leg edema. Patient was switched to metoprolol 100 mg p.o. b.i.d., also started on Lasix 20 mg daily upon discharge. Patient is to follow up outpatient with Cardiology, cardiology may arrange their own appointment and consider outpatient cardiac rehab as per cardio. Health Concerns: CHF education given in detail-if weight gain 2 lb or more in a week patient need outpatient Lasix adjustment, monitor renal function and electrolytes outpatient as well as follow-up with PCP. Plan of Treatment: As above. Assessment: As above.
== END 2023-04-21 13:13 | disposition home health service (06) | DRG 291 ==
LOC: HO.ED 13:46 → HO.EDOVER 16:58 → HO.IMC 19:55
PROVIDERS: Nurse Practitioner Family; Admitting Provider Student in an Organized Health Care Education/Training Program; Emergency Provider Emergency Medicine; PCP Internal Medicine; Visit Provider Internal Medicine
DX: I11.0 Hypertensive heart disease with heart failure (principal); I50.21 Acute systolic (congestive) heart failure; I48.91 Unspecified atrial fibrillation; E78.5 Hyperlipidemia, unspecified; Z66 Do not resuscitate; Z20.822 Contact with and (suspected) exposure to COVID-19; Z86.73 Personal history of transient ischemic attack (TIA), and cerebral infarction without residual deficits; Z79.01 Long term (current) use of anticoagulants; Z79.899 Other long term (current) drug therapy
CPT/HCPCS: 36415; 71046; 80048; 80053; 80076; 81001; 83735; 83880; 84484; 85025; 85610; 87502; 87635; 93005; 93306; 97161; 99285; J1940; J3475; Q9957

== ENCOUNTER → 2023-04-19 12:14 | Outpatient (BNV) | payer OTHER, SELFPAY | PROVIDERS: Admitting Provider Student in an Organized Health Care Education/Training Program; Emergency Provider Emergency Medicine; PCP Internal Medicine; Visit Provider Internal Medicine | DX: I48.91 Unspecified atrial fibrillation (principal); R94.31 Abnormal electrocardiogram [ECG] [EKG] | CPT/HCPCS: 93010 ==

== ENCOUNTER 2023-04-19 16:57 | Outpatient (BNV) | payer OTHER, SELFPAY | END 2023-04-20 07:00 | PROVIDERS: Admitting Provider Student in an Organized Health Care Education/Training Program; Emergency Provider Emergency Medicine; PCP Internal Medicine; Visit Provider Internal Medicine | DX: I35.1 Nonrheumatic aortic (valve) insufficiency (principal); I36.1 Nonrheumatic tricuspid (valve) insufficiency | CPT/HCPCS: 93306 ==

== ENCOUNTER → 2023-04-19 16:57 | Outpatient (BNV) | payer OTHER, SELFPAY | PROVIDERS: Admitting Provider Student in an Organized Health Care Education/Training Program; Emergency Provider Emergency Medicine; PCP Internal Medicine; Visit Provider Internal Medicine | DX: I48.91 Unspecified atrial fibrillation (principal); I50.9 Heart failure, unspecified | CPT/HCPCS: 99223; 99233 ==

== ENCOUNTER → 2023-04-19 16:57 | Outpatient (BNV) | payer OTHER, SELFPAY | PROVIDERS: Admitting Provider Student in an Organized Health Care Education/Training Program; Emergency Provider Emergency Medicine; PCP Internal Medicine; Visit Provider Student in an Organized Health Care Education/Training Program | DX: I50.9 Heart failure, unspecified (principal); I48.91 Unspecified atrial fibrillation | CPT/HCPCS: 99223; 99232; 99239; G0180 ==

== ENCOUNTER → 2023-05-01 08:54 | Outpatient (REF) | payer OTHER, SELFPAY ==
--- NOTE | 2023-05-01 08:58 | HM_ITS ---
Conclusion: 1. Patient was monitored for total period of 2 days and 23 hours 2. Baseline was atrial fibrillation with average heart of 109 beats per minute, not well controlled 3. No significant pauses 4. Occasional PVCs noted with 2 episodes of 3 and 4 beat salvos of nonsustained VT, fastest at 168 beats per minute 5. No patient reported events MTDD
== END ==
LOC: HO.CARD 08:54
PROVIDERS: PCP Internal Medicine; Visit Provider Internal Medicine
DX: I48.91 Unspecified atrial fibrillation (principal)
CPT/HCPCS: 93242

== ENCOUNTER → 2023-05-01 08:58 | Outpatient (BNV) | payer OTHER, SELFPAY | PROVIDERS: PCP Internal Medicine; Visit Provider Internal Medicine Cardiovascular Disease | DX: I48.91 Unspecified atrial fibrillation (principal) | CPT/HCPCS: 93244 ==

== ENCOUNTER 2023-05-10 08:31 | Outpatient (AMB) | payer OTHER, SELFPAY ==
[2023-05-10 08:33] VITALS: BP 132/80; PULSE 72; BMI 29.2
--- NOTE | 2023-05-10 08:33 | A.OFFVIS_ITS ---
Intake Vital Signs 05/10/23 08:33 Height 5 ft 1 in Weight 154 lb 5.177 oz BMI 29.2 BP 132/80 Blood Pressure Location Rt brachial Position Sitting Pulse 72 Pulse Source Pulse Oximeter Intake Visit Reasons: hospital/holter follow up Quality Control Associate Required: No Hydrographic Surveyor: Hydrographic Surveyor Present Allergies coconut [COCONUT] Allergy (Unknown, Verified 05/10/23 08:36) VOMITING Medication List - Last Reconciled 05/10/23 by Miriam Llanes NP-C apixaban (Eliquis) 5 mg PO BID furosemide (Lasix) 20 mg (1/2 x 40 mg) PO DAILY metoprolol tartrate 100 mg (2 x 50 mg) PO BID simvastatin 20 mg PO BEDTIME HPI hospital/holter follow up HPI 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 She was treated with diuretics and increased dose of beta-vishnu. Outpatient Holter monitor done and today she presents for follow-up. Today she reports that she has been feeling since her hospital discharge. She only notices some mild shortness of breath if she walks long hallways which is not unusual for her. No PND, orthopnea or edema. No heart palpitations, lightheadedness, presyncope, syncope, falls. No chest discomfort at rest or with activity. Taking all meds as directed. No bleeding issues reported. Sister Kathe is with her and niece is on speaker phone during visit. [facility] Medical History (Updated 05/10/23 @ 10:51 by Miriam Llanes, BALDOMERO-C) Afib CHF (congestive heart failure) Hyperlipidemia HTN (hypertension) Family History Father Heart disease Mother Heart disease Social History Household Members: None Housing: Apartment Do you presently have visiting nurse or other home services: No Comment: pt refuses alarms Patient Tobacco Use Status: Never used Tobacco Second Hand Smoke Exposure: No service: No Review of Systems Const All systems reviewed & are unremarkable except as noted in HPI and below ENT Denies dizziness Card Denies chest pain, Denies chest pain at rest, Denies chest pain with activity, Denies rapid heart rate, Denies pedal edema, Denies edema, Denies leg edema, Denies lightheadedness, Denies palpitations, Denies dyspnea, Reports dyspnea on exertion and Denies orthopnea Resp Denies cough, Denies dyspnea and Reports dyspnea on exertion GI Denies hematochezia and Denies change in stool character Musc Denies abnormal gait, Denies limited range of motion, Denies muscle cramps, Denies muscle weakness, Denies numbness, Denies radiating pain into limb, Denies stiffness and Denies tingling Neuro Denies abnormal gait, Denies dizziness, Denies numbness and Denies tingling Endo Denies palpitations Physical Exam Vital Signs: Last Vital Signs Pulse 72 05/10/23 08:33 BP 132/80 05/10/23 08:33 BMI result Body Mass Index 29.2 Const General: cooperative, healthy appearing, comfortable and no acute distress Orientation/consciousness: patient oriented x3 Neck Neck: Yes normal visual inspection and Yes no JVD Resp Effort & Inspection: normal respiratory effort Auscultation: clear to auscultation bilaterally, no crackles, no rales, no rhonchi and no wheezes Cardio Jugular venous distension: no JVD Rate: regular rate Rhythm: abnormal rhythm Heart sounds: S1 normal heart sound present, S2 normal heart sound present, no g allops, no murmurs and no rubs Neuro General: patient oriented x3 Extrem General: Yes normal to inspection, No no pedal edema and No calf tenderness Psych Appearance: grossly normal Mental Status: mental status grossly normal Speech and movement: Normal speech and movement present Assessment & Plan Assessment & Plan (1) Afib: Code(s): I48.91 - Unspecified atrial fibrillation Plan: Newer finding of atrial fibrillation around end of March 2023 and had been on metoprolol for heart rate control, Eliquis for anticoagulation. She then presented to [facility] on 04/19/2023 with increased shortness of breath. She is found to have AFib RVR and treated again with heart rate control. Her metoprolol required increase up to 100 mg b.i.d.. Echocardiogram done on 04/20/2023 showed EF 41%, mild aortic regurgitation and mild tricuspid regurgitation. Reduced EF likely related to elevated AFib rates. Holter monitor done following discharge, 05/01/2023 for 3 days shows AFib with average heart rate 109, PVCs with short VT runs 2-4 beats. Today she reports no heart palpitations. She does have some mild shortness of breath if she walks distances. Pulse is irregularly irregular on examination. Heart rate in normal range today. Will start on digoxin 0.125 mg every other day to help with heart rate control. Patient instructed to obtain digoxin level in approximately 10 days, order placed. Continue metoprolol tartrate 100 mg b.i.d.. Continue Eliquis 5 mg b.i.d. which is the appropriate dose for her weight and creatinine. No bleeding issues reported. Cardiology follow-up in 3 months, sooner if needed. (2) Acute CHF: Code(s): I50.9 - Heart failure, unspecified Qualifiers: Heart failure type: unspecified Qualified Code(s): I50.9 - Heart failure, unspecified Plan: Noted to have findings of acute Congestive heart failure on 04/19/2023 admission. Heart failure most likely related to the AFib RVR. She was diuresed and sent home with Lasix 20 mg daily. Her echocardiogram did show a mildly reduced EF. Today she reports breathing is normalized. She has some mild shortness of breath with exertion which is not entirely new. She is mostly sedentary overall. On exam she has no clinical signs of decompensated heart failure. Will continue Lasix 20 mg daily. Signs and symptoms of heart failure reviewed with her in detail. Will plan for limited echo in a few months, readdress next visit. (3) HTN (hypertension): Code(s): I10 - Essential (primary) hypertension Plan: History of hypertension. Currently well controlled. Continue Lasix and metoprolol. (4) Cardiomyopathy: Code(s): I42.9 - Cardiomyopathy, unspecified Plan: As above. Most likely nonischemic. Patient has no cardiac history and has no anginal sounding symptoms. CAD has not been ruled out and is also entirely poss ible. Will hold off on ischemic workup at present. If EF remains down after rate control has been achieved then will plan for a stress test. (5) Hospital discharge follow-up: Code(s): Z09 - Encounter for follow-up examination after completed treatment for conditions other than malignant neoplasm Plan: As above Plan Time spent on chart review, documentation, interview and assessment Orders: Orders Digoxin Today I48.91 - Unspecified atrial fibrillation Medications: New digoxin 125 mcg orally Every other day; 15 tabs 5RF Coding Level of Care Code Est Pt Level 4 (34844) Diagnoses Afib I48.91 Acute CHF I50.9 Heart failure type: unspecified HTN (hypertension) I10 Cardiomyopathy I42.9 Hospital discharge follow-up Z09 Time Spent (min) 35
== END 2023-05-10 09:22 | disposition home or self-care (01) ==
PROVIDERS: PCP Internal Medicine; Visit Provider Nurse Practitioner Family
DX: I48.91 Unspecified atrial fibrillation (principal); I50.9 Heart failure, unspecified; I10 Essential (primary) hypertension; I42.9 Cardiomyopathy, unspecified; Z09 Encounter for follow-up examination after completed treatment for conditions other than malignant neoplasm
CPT/HCPCS: 99214

== ENCOUNTER → 2023-05-10 08:31 | Outpatient (BNVA) | payer OTHER, SELFPAY | PROVIDERS: PCP Internal Medicine; Visit Provider Nurse Practitioner Family | DX: Z09 Encounter for follow-up examination after completed treatment for conditions other than malignant neoplasm (principal); I48.91 Unspecified atrial fibrillation; I11.0 Hypertensive heart disease with heart failure; I50.9 Heart failure, unspecified; I42.9 Cardiomyopathy, unspecified | CPT/HCPCS: 99212 ==

== ENCOUNTER 2023-08-15 14:34 | Outpatient (AMB) | payer OTHER, SELFPAY ==
[2023-08-15 14:40] VITALS: BP 122/60; PULSE 74; BMI 29.3
--- NOTE | 2023-08-15 14:40 | A.OFFVIS_ITS ---
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 She was treated with diuretics and increased dose of beta-vishnu. Outpatient Holter monitor showed AFib RVR with average rate 109. She was put on digoxin for heart rate control last visit and now presents for follow-up. Today she reports she has been feeling very well since her last visit. She is very pleased with her current medication regime and states she is on the right meds to make her feel back to normal. She is not having any heart palpitations. She denies shortness of breath, PND, orthopnea or edema. No chest discomfort at rest or with activity. No lightheadedness, presyncope, syncope, falls. She has been bowling 3 times a week and says she feels very good when doing it. She has no bleeding issues to report. Taking all meds as directed. [facility] Medical History Afib CHF (congestive heart failure) Hyperlipidemia HTN (hypertension) Family History Father Heart disease Mother Heart disease Social History Household Members: None Housing: Apartment Do you presently have visiting nurse or other home services: No Comment: pt refuses alarms Patient Tobacco Use Status: Never used Tobacco Second Hand Smoke Exposure: No service: No Review of Systems Const All systems reviewed & are unremarkable except as noted in HPI and below Denies weakness ENT Denies dizziness Card Denies chest pain, Denies chest pain with activity, Denies syncope, Denies rapid heart rate, Denies pedal edema, Denies edema, Denies leg edema, Denies lightheadedness, Denies palpitations, Denies dyspnea, Denies dyspnea on exertion and Denies orthopnea Resp Denies cough, Denies dyspnea and Denies dyspnea on exertion GI Denies hematochezia and Denies change in stool character Musc Denies abnormal gait, Denies muscle cramps, Denies muscle weakness, Denies numbness, Denies radiating pain into limb and Denies tingling Neuro Denies abnormal gait, Denies dizziness, Denies syncope, Denies numbness, Denies tingling and Denies weakness Endo Denies palpitations Physical Exam Vital Signs: Last Vital Signs Pulse 74 08/15/23 14:40 BP 122/60 08/15/23 14:40 BMI result Body Mass Index 29.3 Const General: cooperative, healthy appearing, comfortable and no acute distress Orientation/consciousness: patient oriented x3 Neck Neck: Yes normal visual inspection and Yes no JVD Resp Effort & Inspection: normal respiratory effort Auscultation: clear to auscultation bilaterally, no crackles, no rales, no rhonchi and no wheezes Cardio Jugular venous distension: no JVD Rate: regular rate Rhythm: abnormal rhythm Heart sounds: S1 normal heart sound present, S2 normal heart sound present, no gallops, no murmurs and no rubs Neuro General: patient oriented x3 Extrem General: Yes normal to inspection, No no pedal edema and No calf tenderness Psych Appearance: grossly normal Mental Status: mental status grossly normal Speech and movement: Normal speech and movement present Assessment & Plan Assessment & Plan (1) Afib: Code(s): I48.91 - Unspecified atrial fibrillation Category: Medical Plan: Newer finding of atrial fibrillation around end of March 2023 and had been on metoprolol for heart rate control, Eliquis for anticoagulation. She then presented to [facility] on 04/19/2023 with increased shortness of breath. She is found to have AFib RVR and treated again with heart rate control. Her metoprolol required increase up to 100 mg b.i.d.. Echocardiogram done on 04/20/2023 showed EF 41%, mild aortic regurgitation and mild tricuspid regurgitation. Reduced EF likely related to elevated AFib rates. Holter monitor done following discharge, 05/01/2023 for 3 days shows AFib with average heart rate 109, PVCs with short VT runs 2-4 beats. On last visit she reported shortness of breath when walking distances. She was put on digoxin 0.25 mg every other day for heart rate control. Today she reports she is feeling very well recently. She is able to go bowling 3 times weekly and tolerates it well. She no longer has shortness of breath and she denies any heart palpitations. Her heart rate is in the normal range today, pulse is still irregularly irregular on examination. I gave her a slip to obtain a digoxin blood level. Continue digoxin every other day, Continue metoprolol tartrate 100 mg b.i.d.. Continue Eliquis 5 mg b.i.d. which is the appropriate dose for her weight and creatinine. Will check a limited echo to reassess EF now that heart rate seems controlled. Cardiology follow-up in 6 months, sooner if needed. (2) Acute CHF: Code(s): I50.9 - Heart failure, unspecified Category: Medical Qualifiers: Heart failure type: unspecified Qualified Code(s): I50.9 - Heart failure, unspecified Plan: Noted to have findings of acute Congestive heart failure on 04/19/2023 admission. Heart failure most likely related to the AFib RVR. She was diuresed and sent home with Lasix 20 mg daily. Her echocardiogram did show a mildly reduced EF. Today she reports breathing is normalized. On exam she has no clinical signs of decompensated heart failure. Will continue Lasix 20 mg daily. Signs and symptoms of heart failure reviewed with her in detail. Limited echo being done. (3) HTN (hypertension): Code(s): I10 - Essential (primary) hypertension Category: Medical Plan: History of hypertension. Currently well controlled. Continue Lasix and metoprolol. (4) Cardiomyopathy: Code(s): I42.9 - Cardiomyopathy, unspecified Category: Medical Plan: As above. Most likely nonischemic. Patient has no cardiac history and has no anginal sounding symptoms. CAD has not been ruled out and is also entirely possible. Will hold off on ischemic workup at present. If EF remains down after rate control has been achieved then will plan for a stress test. Plan Time spent on chart review, documentation, interview and assessment Orders: Orders CA echo limited Today I42.9 - Cardiomyopathy, unspecified Coding Level of Care Code Est Pt Level 4 (62595) Diagnoses Afib I48.91 Acute CHF I50.9 Heart failure type: unspecified HTN (hypertension) I10 Cardiomyopathy I42.9 Time Spent (min) 30
== END 2023-08-15 15:26 | disposition home or self-care (01) ==
PROVIDERS: PCP Internal Medicine; Visit Provider Nurse Practitioner Family
DX: I48.91 Unspecified atrial fibrillation (principal); I50.9 Heart failure, unspecified; I10 Essential (primary) hypertension; I42.9 Cardiomyopathy, unspecified
CPT/HCPCS: 99214

== ENCOUNTER → 2023-08-15 14:34 | Outpatient (BNVA) | payer OTHER, SELFPAY | PROVIDERS: PCP Internal Medicine; Visit Provider Nurse Practitioner Family | DX: I48.91 Unspecified atrial fibrillation (principal); I50.9 Heart failure, unspecified; I10 Essential (primary) hypertension; I42.9 Cardiomyopathy, unspecified | CPT/HCPCS: 99212 ==

== ENCOUNTER → 2023-10-15 14:44 | Outpatient (REF) | payer OTHER, SELFPAY ==
--- NOTE | 2023-10-15 14:52 | CA_ITS ---
Transthoracic Echocardiogram Patient (Last, First, Middle): Rashmi Yuan M Gender: Female Date of : 1940 Age: 83 Procedure Date: 10/15/2023 Procedure Type: Transthoracic Echocardiogram Location: OP Height: 154.94 cm Weight: 70.31 kg BSA: 1.70 m2 Heart Rate: bpm BP: 124 / 62 mmHg Line Installer Trolley: SB Referring MD: Miriam Llanes HOTEL FRONT DESK AGENT-C Brim Pouncer Machine Operator: Cam Ortiz MD Symptoms: I42.9 - Cardiomyopathy, unspecified Study Quality: Adequate ECG Rhythm: Atrial Fibrillation Conclusions: - Normal LV ejection fraction at 60-65% Findings Left Ventricle Normal left ventricular size, thickness, and systolic function. The visually estimated ejection fraction is between 60-65%. Diastolic function is indeterminate on the basis of available data. Wall Motion Rest Echo Findings The basal inferior and basal inferoseptal segments are hypokinetic. All other scored wall segments showed normal motion. Prior Study Comparison Significant changes compared to prior study dated: 04/20/2023. LV ejection fraction is in normal range Measurements 2D Linear Measurements IVSd: 1.18 0.6-0.9/0.6-1.0 cm LVIDd: 4.55 3.9-5.3/4.2-5.9 cm LVIDd Index: 2.68 2.4-3.2/2.2-3.1 cm/m2 LVIDs: 2.94 2.0-3.6 cm LVPWd: 0.86 0.7-1.1 cm LV Mass: 200.08 67-162/88-224 g LV Mass Index: 117.69 43-95/49-115 g/m2 LVOT Diam: 2.00 3.0+(-)1.3 cm 2D Systolic Function EF 4C: 60.90 >55% EF 2C: 64.20 >55% EF BiP: 61.70 >55% LVOT LVOT Diam: 2.00 LVOT Area: 3.14 Updated in Other Vendor System with Status of Final Cam Ortiz MD electronically signed on 10/16/2023 12:13:46 PM with status of Final
== END ==
LOC: HO.CARD 14:44
PROVIDERS: Visit Provider Nurse Practitioner Family
DX: I42.9 Cardiomyopathy, unspecified (principal)
CPT/HCPCS: 93308

== ENCOUNTER → 2023-10-15 14:52 | Outpatient (BNV) | payer OTHER, SELFPAY | PROVIDERS: Visit Provider Internal Medicine Cardiovascular Disease | DX: I42.9 Cardiomyopathy, unspecified (principal); I48.91 Unspecified atrial fibrillation | CPT/HCPCS: 93308 ==

== ENCOUNTER → 2024-02-18 13:16 | Outpatient (AMB) | payer OTHER, SELFPAY ==
--- NOTE | 2024-02-18 13:21 | MHC.OFFVIS ---
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 She has since been treated with heart rate control and low-dose diuretics. She now presents for follow-up. Today she reports she has been feeling very well since her last visit. She is very pleased with her current medication regime and states she is on the right meds to make her feel back to normal. She is not having any heart palpitations. She denies shortness of breath, PND, orthopnea or edema. No chest discomfort at rest or with activity. No lightheadedness, presyncope, syncope, falls. Her only physical complaint is that she does have periodic low back discomfort. This bothers her most when she is walking distances. It never prevents her from bowling. She has been bowling 3 times a week and says she feels very good when doing it. She has no bleeding issues to report. Taking all meds as directed. [facility] Medical History Afib CHF (congestive heart failure) Hyperlipidemia HTN (hypertension) Family History Father Heart disease Mother Heart disease Social History Household Members: None Housing: Apartment Do you presently have visiting nurse or other home services: No Comment: pt refuses alarms Patient Tobacco Use Status: Never used Tobacco Second Hand Smoke Exposure: No service: No Review of Systems Const All systems reviewed & are unremarkable except as noted in HPI and below ENT Denies dizziness Card Denies chest pain, Denies chest pain at rest, Denies chest pain with activity, Denies rapid heart rate, Denies pedal edema, Denies edema, Denies leg edema, Denies lightheadedness, Denies palpitations, Denies dyspnea, Denies dyspnea on exertion and Denies orthopnea Resp Denies cough, Denies dyspnea and Denies dyspnea on exertion GI Denies hematochezia and Denies change in stool character Musc Details: low back discomfort Denies abnormal gait, Denies limited range of motion, Denies muscle cramps, Denies muscle weakness, Denies numbness, Denies radiating pain into limb, Denies stiffness and Denies tingling Neuro Denies abnormal gait, Denies dizziness, Denies numbness and Denies tingling Endo Denies palpitations Physical Exam Vital Signs: Last Vital Signs Pulse 93 02/18/24 13:22 BP 122/70 02/18/24 13:22 BMI result Body Mass Index 29.5 Const General: cooperative, healthy appearing, comfortable and no acute distress Orientation/consciousness: patient oriented x3 Neck Neck: Yes normal visual inspection and Yes no JVD Resp Effort & Inspection: normal respiratory effort Auscultation: clear to auscultation bilaterally, no crackles, no rales, no rhonchi and no wheezes Cardio Jugular venous distension: no JVD Rate: regular rate Rhythm: regular rhythm Heart sounds: S1 normal heart sound present, S2 normal heart sound present, no murmurs and no rubs Neuro General: patient oriented x3 Extrem General: Yes normal to inspection, No no pedal edema and No calf tenderness Psych Appearance: grossly normal Mental Status: mental status grossly normal Speech and movement: Normal speech and movement present Office Procedures EKG Details: Today, read by me, atrial fibrillation, low-voltage QRS, inferior infarct /anterior infarct can not be excluded, rate 93, QTC 415 milliseconds [id number], Complete Assessment & Plan Assessment & Plan (1) Afib: Code(s): I48.91 - Unspecified atrial fibrillation Category: Medical Plan: Newer finding of atrial fibrillation around end of March 2023 and was put on metoprolol for heart rate control, Eliquis for anticoagulation. She then presented to [facility] on 04/19/2023 with increased shortness of breath. She is found to have Congestive heart failure and AFib RVR . She was started on diuretics and Her metoprolol required increase up to 100 mg b.i.d.. Echocardiogram done on 04/20/2023 showed EF 41%, mild aortic regurgitation and mild tricuspid regurgitation. Reduced EF likely related to elevated AFib rates. Holter monitor done following discharge, 05/01/2023 for 3 days shows AFib with average heart rate 109, PVCs with short VT runs 2-4 beats. She was started on digoxin 0.25 mg every other day to help with heart rate control. A limited echocardiogram was done 10/15/2023 showing EF 60-65%. On last visit she was given a lab slip to have her digoxin level checked. There was no results in our system. Will check [facility] records. Today she reports she is feeling very well recently. She is able to go bowling 3 times weekly and tolerates it well. She denies any shortness of breath or heart palpitations. EKG done today showing atrial fibrillation, rate 93. Pulse recheck done by me later in the visit, rate 85. Continue digoxin every other day, Continue metoprolol tartrate 100 mg b.i.d.. Continue Eliquis 5 mg b.i.d. which is the appropriate dose for her weight and creatinine. Recommend twice yearly BMP, digoxin level. Will forward this note to her PCP. Cardiology follow-up in 6 months, sooner if needed. (2) Acute CHF: Code(s): I50.9 - Heart failure, unspecified Category: Medical Qualifiers: Heart failure type: unspecified Qualified Code(s): I50.9 - Heart failure, unspecified Plan: Noted to have findings of acute Congestive heart failure on 04/19/2023 admission. Heart failure most likely related to the AFib RVR. She was diuresed and sent home with Lasix 20 mg daily. Her echocardiogram did show a mildly reduced EF which did normalize on follow-up echocardiogram. Today she reports breathing is normal. On exam she has no clinical signs of decompensated heart failure. Will continue Lasix 20 mg daily. Signs and symptoms of heart failure reviewed with her in detail. (3) HTN (hypertension): Code(s): I10 - Essential (primary) hypertension Category: Medical Plan: History of hypertension. Currently well controlled. Continue Lasix and metoprolol. (4) Cardiomyopathy: Code(s): I42.9 - Cardiomyopathy, unspecified Category: Medical Plan: As above. Most likely nonischemic. Patient has no cardiac history and has no anginal sounding symptoms. CAD has not been ruled out and is also entirely possible. Once heart rate was controlled a repeat echo showed normal EF, and she has no wall motion abnormalities. In the absence of symptoms, Will hold off on ischemic workup. Drop in EF like related to AFib RVR. Plan Time spent on chart review, documentation, interview and assessment Coding Level of Care Code Est Pt Level 4 (12753) Complex EM visit Add On G2211 Diagnoses Afib I48.91 Acute CHF I50.9 Heart failure type: unspecified HTN (hypertension) I10 Cardiomyopathy I42.9 CPT Codes EKG - CPT: [id number], Complete ([id number]) Time Spent (min) 30
[2024-02-18 13:22] VITALS: BP 122/70; PULSE 93; BMI 29.5
== END ==
PROVIDERS: PCP Internal Medicine; Visit Provider Nurse Practitioner Family
DX: I48.91 Unspecified atrial fibrillation (principal); I50.9 Heart failure, unspecified; I10 Essential (primary) hypertension; I42.9 Cardiomyopathy, unspecified
CPT/HCPCS: 93010; 99214; G2211

== ENCOUNTER → 2024-02-18 13:20 | Outpatient (BNVA) | payer OTHER, SELFPAY | PROVIDERS: PCP Internal Medicine; Visit Provider Nurse Practitioner Family | DX: I48.91 Unspecified atrial fibrillation (principal); I11.0 Hypertensive heart disease with heart failure; I50.9 Heart failure, unspecified; I42.9 Cardiomyopathy, unspecified | CPT/HCPCS: 93005; 99212 ==

== ENCOUNTER 2024-06-25 14:35 | Outpatient (REF) | payer MEDICARE, SELFPAY ==
[2024-06-25 16:28] LABS: Digoxin < 0.2 ng/mL (0.8-2.0)
== END 2024-06-25 14:36 | disposition home or self-care (01) ==
LOC: HO.LAB 14:35
PROVIDERS: Visit Provider Nurse Practitioner Family
DX: I48.91 Unspecified atrial fibrillation (principal)
CPT/HCPCS: 36415; 80162